=== PATIENT | female | born 1950 | race Two or more races ===

== ENCOUNTER 2024-05-11 09:35 | Emergency (ER) | payer OTHER ==
[~2024-05-11] VITALS: Ht 162.6 cm; Wt 69.5 kg
[2024-05-11 10:15] VITALS: BP 128/79; PULSE 81; RESP 18; TEMP 97; O2SAT 96
[2024-05-11] MEDS: ACETAMINOPHEN/CODEINE#3 (300/30mg) TAB PO ONE (10:29)
[2024-05-11] MEDS ORDERED: IBUP1TAB5 PO (11:43)
[2024-05-11] MEDS ORDERED: ACE3T PO (11:43)
== END 2024-05-11 11:59 | disposition home or self-care (01) ==
LOC: ER 09:35
DX: S52.501A Unspecified fracture of the lower end of right radius, initial encounter for closed fracture (principal); S00.11XA Contusion of right eyelid and periocular area, initial encounter; W18.00XA Striking against unspecified object with subsequent fall, initial encounter; Y93.89 Activity, other specified; Y92.89 Other specified places as the place of occurrence of the external cause; Y99.8 Other external cause status
CPT/HCPCS: 29125; 73110